=== PATIENT | female | born 1965 | race Caucasian/White ===

== ENCOUNTER 2017-07-15 15:07 | Emergency (ER) | payer OTHER ==
[~2017-07-15] VITALS: Ht 170.2 cm; Wt 74.8 kg
[2017-07-15] MEDS ORDERED: CRESTOR5 MG PO (15:23)
[2017-07-15] MEDS ORDERED: ASPIR 8181 MG PO (15:24)
[2017-07-15] MEDS ORDERED: TESSALON PERLE100 MG PO (15:54)
[2017-07-15 16:05] VITALS: BP 130/69
== END 2017-07-15 16:06 | disposition home or self-care (01) ==
LOC: M.ERS 15:07
DX: J06.9 Acute upper respiratory infection, unspecified (principal); R05 Cough; Z88.8 Allergy status to other drugs, medicaments and biological substances